=== PATIENT | male | born 1950 | race African-American/Black ===

== ENCOUNTER 2017-02-04 15:12 | Inpatient (IN) | payer OTHER ==
[~2017-02-04] VITALS: Ht 167.6 cm; Wt 64.9 kg
[~2017-02-04 15:12] MED LIST: FINA5TAB11 PO; MELO-58 PO; TAMS0.4C31 PO
[2017-02-04] MEDS ORDERED: FUROSEMIDE 40MG/4ML VIAL IV STA (15:23)
[2017-02-04] MEDS ORDERED: METHYLPREDNISOLONE SOD SUCC 125 MG/2 ML VIAL IV STA (15:23)
[2017-02-04] MEDS ORDERED: IPRATROPIUM/ALBUTEROL 0.5-3(2.5)MG/3ML NEB HHN ONE (15:30)
[2017-02-04 16:09] LABS: HEMATOCRIT. 24.8 % (42.0-52.0); HEMOGLOBIN. 7.9 g/dL (14.0-18.0); MEAN CORPUSCULAR HEMOGLOBIN 25.2 pg (28.0-32.0); MEAN CORPUSCULAR VOLUME 79.4 fL (80.0-94.0); MEAN PLATELET VOLUME 7.5 fl (7.4-10.4); PLATELET 296 x1000/uL (130-400); RED BLOOD CELL COUNT 3.13 mill/uL (4.7-6.1); RED CELL DISTRIBUTION WIDTH 21.3 % (11.6-14.6)
[2017-02-04 16:13] LABS: CHLORIDE 102 mEq/L (98-107)
[2017-02-04 16:15] LABS: INR 1.1; PARTIAL THROMBOPLASTIN TIME 38.8 sec (24.0-34.0); PROTHROMBIN TIME 11.9 sec
[2017-02-04 16:22] LABS: CARBON DIOXIDE 29 mEq/L (21-32)
[2017-02-04 16:24] LABS: TROPONIN I 0.03 ng/mL (0.00-0.04)
[2017-02-04 16:36] LABS: PLATELET ESTIMATE NORMAL
[2017-02-04 16:49] LABS: BG BASE EXCESS -1.2 mmol/L (-2.0-2.0); BG BILEVEL POS AIRWAY PRESSURE 15/5; BG CARBOXYHEMOGLOBIN 0.3 % (0.5-1.5); BG DEOXYHEMOGLOBIN 5.3 % (0.0-5.0); BG HCO3 ACT 24.5 mmol/L (22.0-26.0); BG METHEMOGLOBIN 0.3 % (0.0-1.5); BG OXYGEN SATURATION 94.7 % (92.0-98.5); BG OXYHEMOGLOBIN 94.1 % (94.0-97.0); BG PH 7.353 (7.350-7.450); BG SAMPLE SITE RIGHT RADIAL; BG TOTAL HEMOGLOBIN 9.1 g/dL (12.0-18.0); BG VENT MODE MASK - BIPAP; BG VENT RATE 16 set
[2017-02-04] MEDS ORDERED: CEFTRIAXONE 1 G PREMIX 50 ML IV ONE (17:30)
[2017-02-04] MEDS ORDERED: AZITHROMYCIN 500 MG in DEXT 5% WATER 250 ML IV SCH (17:30)
[2017-02-04 20:30] VITALS: BP 121/73
[2017-02-04] MEDS ORDERED: ACETAMINOPHEN 325MG TABLET PO PRN (21:45)
[2017-02-04 22:00] VITALS: BP 95/56
[2017-02-04] MEDS: IPRATROPIUM/ALBUTEROL 0.5-3(2.5)MG/3ML NEB INH SCH (22:16)
[2017-02-04] MEDS: POTASSIUM CHLORIDE 20MEQ TABLET SR PO SCH (22:21)
[2017-02-04] MEDS: METHYLPREDNISOLONE SOD SUCC 40 MG/ML VIAL IV SCH (22:21)
[2017-02-05] VITALS (16 sets, daily range): BP systolic 90–115; BP diastolic 50–85
[2017-02-05] MEDS: IPRATROPIUM/ALBUTEROL 0.5-3(2.5)MG/3ML NEB INH SCH ×5 (00:21→20:34)
[2017-02-05] MEDS: LORAZEPAM 2MG/ML CPJ IV PRN (00:54)
[2017-02-05 06:52] LABS: HEMATOCRIT. 24.5 % (42.0-52.0); HEMOGLOBIN. 7.9 g/dL (14.0-18.0); MEAN CORPUSCULAR HEMOGLOBIN 25.8 pg (28.0-32.0); MEAN CORPUSCULAR VOLUME 79.5 fL (80.0-94.0); MEAN PLATELET VOLUME 7.5 fl (7.4-10.4); PLATELET 287 x1000/uL (130-400); RED BLOOD CELL COUNT 3.08 mill/uL (4.7-6.1); RED CELL DISTRIBUTION WIDTH 21.4 % (11.6-14.6)
[2017-02-05 07:12] LABS: CARBON DIOXIDE 29 mEq/L (21-32); CHLORIDE 102 mEq/L (98-107); T4 FREE 1.76 ng/dL (0.76-1.46); TROPONIN I 0.02 ng/mL (0.00-0.04)
[2017-02-05] MEDS: METHYLPREDNISOLONE SOD SUCC 40 MG/ML VIAL IV SCH ×2 (08:48→20:56)
[2017-02-05] MEDS: POTASSIUM CHLORIDE 20MEQ TABLET SR PO SCH ×2 (09:00→18:44)
[2017-02-05] MEDS: ENOXAPARIN 40MG/0.4ML SYR SUBCUT SCH (09:00)
[2017-02-05] MEDS: FUROSEMIDE 40MG/4ML VIAL IV SCH ×2 (09:00→18:44)
[2017-02-05 10:30] LABS: PLATELET ESTIMATE NORMAL
[2017-02-05 13:48] LABS: BG BASE EXCESS -2.2 mmol/L (-2.0-2.0); BG BILEVEL POS AIRWAY PRESSURE 15/5; BG DEOXYHEMOGLOBIN 6.2 % (0.0-5.0); BG FRACTION INSPIRED OXYGEN 70; BG HCO3 ACT 23.6 mmol/L (22.0-26.0); BG METHEMOGLOBIN 0.4 % (0.0-1.5); BG OXYGEN SATURATION 93.8 % (92.0-98.5); BG OXYHEMOGLOBIN 93.4 % (94.0-97.0); BG PH 7.337 (7.350-7.450); BG PO2 76.9 mmHg (75.0-100.0); BG SAMPLE SITE RIGHT BRACHIAL; BG TOTAL HEMOGLOBIN 9.4 g/dL (12.0-18.0); BG VENT MODE MASK - BIPAP
[2017-02-05] MEDS: CEFTRIAXONE 1 G PREMIX 50 ML IV SCH (20:57)
[2017-02-06] VITALS (12 sets, daily range): BP systolic 95–120; BP diastolic 43–85
[2017-02-06] MEDS: IPRATROPIUM/ALBUTEROL 0.5-3(2.5)MG/3ML NEB INH SCH ×4 (08:37→20:45)
[2017-02-06] MEDS: ENOXAPARIN 40MG/0.4ML SYR SUBCUT SCH (09:00)
[2017-02-06] MEDS: METHYLPREDNISOLONE SOD SUCC 40 MG/ML VIAL IV SCH ×2 (10:04→19:53)
[2017-02-06] MEDS: POTASSIUM CHLORIDE 20MEQ TABLET SR PO SCH ×2 (10:04→17:29)
[2017-02-06] MEDS: FUROSEMIDE 40MG/4ML VIAL IV SCH ×2 (10:04→17:00)
[2017-02-06] MEDS ORDERED: SODIUM BICARBONATE 4.2% 5 MEQ/10 ML DISP.SYRIN IV ONE (13:10)
[2017-02-06] MEDS: CEFTRIAXONE 1 G PREMIX 50 ML IV SCH (17:29)
[2017-02-07] VITALS (12 sets, daily range): BP systolic 90–108; BP diastolic 43–72
[2017-02-07] MEDS: IPRATROPIUM/ALBUTEROL 0.5-3(2.5)MG/3ML NEB INH SCH ×4 (08:18→21:20)
[2017-02-07] MEDS: ENOXAPARIN 40MG/0.4ML SYR SUBCUT SCH (09:00)
[2017-02-07] MEDS: FUROSEMIDE 40MG/4ML VIAL IV SCH ×2 (09:52→17:17)
[2017-02-07] MEDS: METHYLPREDNISOLONE SOD SUCC 40 MG/ML VIAL IV SCH ×2 (09:52→20:29)
[2017-02-07] MEDS: POTASSIUM CHLORIDE 20MEQ TABLET SR PO SCH ×2 (09:52→17:17)
[2017-02-07 15:54] LABS: HEMATOCRIT. 27.9 % (42.0-52.0); HEMOGLOBIN. 8.9 g/dL (14.0-18.0); MEAN CORPUSCULAR HEMOGLOBIN 25.5 pg (28.0-32.0); MEAN CORPUSCULAR VOLUME 80.1 fL (80.0-94.0); MEAN PLATELET VOLUME 7.3 fl (7.4-10.4); PLATELET 273 x1000/uL (130-400); RED BLOOD CELL COUNT 3.48 mill/uL (4.7-6.1); RED CELL DISTRIBUTION WIDTH 20.9 % (11.6-14.6)
[2017-02-07] MEDS: CEFTRIAXONE 1 G PREMIX 50 ML IV SCH (17:17)
[2017-02-07 17:35] LABS: PLATELET ESTIMATE NORMAL
[2017-02-07] MEDS ORDERED: TEMAZEPAM 15MG CAPSULE PO PRN (19:45)
[2017-02-08] VITALS (13 sets, daily range): BP systolic 95–144; BP diastolic 61–85
[2017-02-08] MEDS: LORAZEPAM 2MG/ML CPJ IV PRN (00:30)
[2017-02-08] MEDS: POTASSIUM CHLORIDE 20MEQ TABLET SR PO SCH ×2 (08:24→17:34)
[2017-02-08] MEDS: FUROSEMIDE 40MG/4ML VIAL IV SCH ×2 (08:24→17:34)
[2017-02-08] MEDS: ENOXAPARIN 40MG/0.4ML SYR SUBCUT SCH (08:24)
[2017-02-08] MEDS: METHYLPREDNISOLONE SOD SUCC 40 MG/ML VIAL IV SCH ×3 (08:24→21:45)
[2017-02-08] MEDS: IPRATROPIUM/ALBUTEROL 0.5-3(2.5)MG/3ML NEB INH SCH ×4 (08:54→20:28)
[2017-02-08 15:30] LABS: HEMATOCRIT. 29.9 % (42.0-52.0); HEMOGLOBIN. 9.5 g/dL (14.0-18.0); MEAN CORPUSCULAR HEMOGLOBIN 25.3 pg (28.0-32.0); MEAN CORPUSCULAR VOLUME 79.9 fL (80.0-94.0); MEAN PLATELET VOLUME 7.3 fl (7.4-10.4); PLATELET 270 x1000/uL (130-400); RED BLOOD CELL COUNT 3.74 mill/uL (4.7-6.1)
[2017-02-08 17:04] LABS: PLATELET ESTIMATE NORMAL
[2017-02-08] MEDS: CEFTRIAXONE 1 G PREMIX 50 ML IV SCH (17:34)
== END 2017-02-08 22:00 | DRG 189 ==
LOC: ER 15:22 → 5EST 17:50 → EDBEDREQ 17:53 → ENRESERV 18:03
PROVIDERS: ADMIT Internal Medicine; ATTEND Internal Medicine
PROC: 5A09457 Assistance with Respiratory Ventilation, 24-96 Consecutive Hours, Continuous Positive Airway Pressure (ICD-10-PCS; 2017-02-04)
PROC: 30233N1 Transfusion of Nonautologous Red Blood Cells into Peripheral Vein, Percutaneous Approach (ICD-10-PCS; 2017-02-05)
PROC: 0W993ZZ Drainage of Right Pleural Cavity, Percutaneous Approach (ICD-10-PCS; principal; 2017-02-06)
DX: J96.00 Acute respiratory failure, unspecified whether with hypoxia or hypercapnia (principal); J18.9 Pneumonia, unspecified organism; J44.0 Chronic obstructive pulmonary disease with (acute) lower respiratory infection; I50.9 Heart failure, unspecified; Z51.5 Encounter for palliative care; I48.91 Unspecified atrial fibrillation; D64.9 Anemia, unspecified; M19.90 Unspecified osteoarthritis, unspecified site; R59.1 Generalized enlarged lymph nodes; Z85.07 Personal history of malignant neoplasm of pancreas; Z85.46 Personal history of malignant neoplasm of prostate; Z79.899 Other long term (current) drug therapy
CPT/HCPCS: 32555; 36415; 36600; 71010; 80048; 80053; 82375; 82805; 82962; 83605; 83880; 84439; 84443; 84484; 85025; 85610; 85730; 86850; 86900; 86920; 87040; 87070; 87205; 93005; 94640; 94660; 94664; 96365; 96367; 96375; 99291; J0456; J0696; J1650; J1940; J2060; J2920; J2930; J3490; J7050; J7060; J7620; P9016; A4315